=== PATIENT | male | born 1990 | race Two or more races ===

== ENCOUNTER 2017-06-08 14:55 | Emergency (ER) | payer SELFPAY ==
--- NOTE | 2017-06-08 16:53 | UC ---
Skin Complaint HPI - HPI Summary HPI Summary: 27 y/o male presents to the urgent care c/o redness with swelling below his RT knee s/p bug bite 4 days ago. Pt states his pain is 6/10 specially when he walks. Pt has been taking Ibuprofen 400mg OTC which has helped with the pain. Pt denies fever. SOB, chest pain, N/V/D, abdominal pain. - History of Current Complaint Chief Complaint: UCLowerExtremity Time Seen by Provider: 06/08/17 16:31 Stated Complaint: POSS BUG BITE,INFLAMED Hx Obtained From: Patient Onset/Duration: Gradual Onset, Lasting Days - 4 DAYS, Still Present Skin Exposure Onset/Duration: Days Ago Timing: Constant Onset Severity: Mild Current Severity: Moderate Pain Intensity: 6 Pain Scale Used: 0-10 Numeric Location: Discrete - Below the Rt knee Character: Swelling, Pain, Redness, Painful Aggravating: Touch Alleviating: OTC Meds Associated Signs & Symptoms: Positive: Negative, Tenderness. Negative: Fever, Hoarseness, Rash, Red Streaks - Allergy/Home Medications Allergies/Adverse Reactions: Allergies Allergy/AdvReac Type Severity Reaction Status Date / Time No Known Allergies Allergy Verified 06/08/17 15:46 Review of Systems Constitutional: Negative Skin: Rash - RT lower leg just below the RT knee with red rash s/p bug bite Eyes: Negative ENT: Negative Respiratory: Negative Cardiovascular: Negative Gastrointestinal: Negative Genitourinary: Negative Motor: Negative Neurovascular: Negative Musculoskeletal: Negative Neurological: Negative Psychological: Negative All Other Systems Reviewed And Are Negative: Yes PMH/Surg Hx/FS Hx/Imm Hx Previously Healthy: Yes - Surgical History Surgical History: Yes Surgery Procedure, Year, and Place: SURGERY AT AGE 1 - Family History Known Family History: Positive: Hypertension - Social History Occupation: Employed Full-time Lives: With Family Alcohol Use: Occasionally Substance Use Type: None Smoking Status (MU): Never Smoked Tobacco Physical Exam Triage Information Reviewed: Yes Appearance: Well-Appearing, No Pain Distress, Well-Nourished Vital Signs: Initial Vital Signs Temp 98.2 F 06/08/17 15:36 Pulse 102 06/08/17 15:36 Resp 16 06/08/17 15:36 BP 152/104 06/08/17 15:36 Pulse Ox 99 06/08/17 15:36 Vital Signs Reviewed: Yes Eye Exam: Normal Eyes: Positive: Conjunctiva Clear - PERRLA, EOMI ENT Exam: Normal ENT: Positive: Normal ENT inspection, Hearing grossly normal, Pharynx normal, TMs normal Dental Exam: Normal Neck exam: Normal Neck: Positive: Supple, Nontender, No Lymphadenopathy Respiratory Exam: Normal Respiratory: Positive: Chest non-tender, Lungs clear, Normal breath sounds Cardiovascular Exam: Normal Cardiovascular: Positive: RRR, No Murmur, Pulses Normal Abdominal Exam: Normal Abdomen Description: Positive: Nontender, No Organomegaly, Soft. Negative: CVA Tenderness (R), CVA Tenderness (L) Bowel Sounds: Positive: Present Musculoskeletal Exam: Normal Musculoskeletal: Positive: Strength Intact, ROM Intact, No Edema, Other: - RT knee with FROM, non tender positive pulses Neurological Exam: Normal Psychological Exam: Normal Skin: Positive: rashes - RT lower leg just below the Rt knee with erythematous patch with indistict borders about 4cm X 4cmin size. swollen, raised w/ central postule s/p insect bite. Course/Dx - Course Course Of Treatment: 27 y/o male presents to the urgent care c/o redness with swelling below his RT knee s/p bug bite 4 days ago. Pt states his pain is 6/10 specially when he walks. Pt has been taking Ibuprofen 400mg OTC which has helped with the pain. Pt denies fever. SOB, chest pain, N/V/D, abdominal pain. Hx obtained. Cellulitis of lateral side of LF lower leg below the LF knee. Cellulitis demarkated with skin marker. Pt Rx Bactrim PO and Bacitracin and Ibuprofen PO to alleviate symptoms. Advised if redness doubles in size after 48hrs despite taking antibiotics and fevr develops to go immediately to the ER. Otherwise return to urgent care or F/u with PCP for check up in 2 days. Pt BP elevated today. FMHX of HTN. Advised to monitor BP, decrease salt in diet and if continues to be elevated to f/u with PCP for further management. Pt understood and agreed. - Differential Diagnoses - Skin Complaint Differential Diagnoses: Abscess, Cellulitis, Lymphadenitis, MRSA, Tick Born Illness, Urticaria, Other - insect bite - Diagnoses Provider Diagnoses: 1- Rt lower leg with cellulitis. 2- Elevated blod pressure w/o HX of HTN Discharge - Discharge Plan Condition: Stable Disposition: HOME Prescriptions: Bacitracin OINTMENT* 1 applic TOPICAL TID #1 tube Ibuprofen TAB* [Motrin TAB* 800 MG] 800 mg PO Q6H #20 tab Sulfamethox/Trimethoprim DS* [Bactrim DS 800/160 TAB*] 1 tab PO BID #20 tab Patient Education Materials: Cellulitis (ED), Low Sodium Diet (ED) Print Language: JAPANESE Forms: *Work Release Referrals: No Primary Care Phys,NOPCP [Primary Care Provider] - [facility] [Outside] - 3 Days Additional Instructions: 1-Por favor tome todo benavidez antibiotico completamente para evitar resistencia. 2-Si desarrolla inflamacion, fiebre y la piel blayne se esparce mas dolly del area demarcada despues de 48 hr del antibiotico, por Favor vaya a la Emergencia lo mas pronto possible por tratamiento de antibiotico por vena. 3-Evite estar mucho tiempo de pie, o flexionar benavidez rodilla, matenga la elevada en la noche. Por favor gavino a benavidez Medico Prim[facility] en 2 jeffery para mallory que la cellulitis se kathleen resolviendo.. 4- Benavidez Pression arterial esta elevada hoy. Por favor disminulla la mark en la comida y stephanie ejercicio, monitore benavidez Presion arterial. Si continua mary por favor gavino a gretchen [facility] para mejor tratamiento.
[2017-06-08 17:11] VITALS: BP 140/98
== END 2017-06-08 17:30 | disposition home or self-care (01) ==
LOC: UCEAST 14:55
DX: L03.115 Cellulitis of right lower limb (principal); R03.0 Elevated blood-pressure reading, without diagnosis of hypertension
CPT/HCPCS: 99202; G0463

== ENCOUNTER 2017-11-13 14:42 | Emergency (ER) | payer SELFPAY ==
[2017-11-13 15:55] VITALS: BP 151/95
--- NOTE | 2017-11-13 16:13 | UC ---
Lower Extremity/Ankle HPI - HPI Summary HPI Summary: Pt presents with left ankle pain sustained 4 days ago. The pt does not speak or understand much south african - his friend, Federico, with him today is translating. He tells me that 4 days ago he developed this pain after tripping and twisting his ankle. Pain is on the anterior aspect of the left ankle. He has not taken anything for this pain and has still been working and ambulating. Denies numbness, tingling, or history of injury. - History of Current Complaint Chief Complaint: UCLowerExtremity Stated Complaint: ANKLE INJURY Time Seen by Provider: 11/13/17 16:10 Hx Obtained From: Patient Onset/Duration: Sudden Onset Severity Initially: Severe Severity Currently: Severe Pain Intensity: 8 Pain Scale Used: 0-10 Numeric Aggravating Factor(s): Standing, Ambulation Alleviating Factor(s): Rest, Elevation Able to Bear Weight: Yes - Allergies/Home Medications Allergies/Adverse Reactions: Allergies Allergy/AdvReac Type Severity Reaction Status Date / Time No Known Allergies Allergy Verified 06/08/17 15:46 Home Medications: Home Medications Ibuprofen TAB* [Motrin TAB* 800 MG] 600 mg PO Q6H 11/13/17 [History Confirmed ] PMH/Surg Hx/FS Hx/Imm Hx Previously Healthy: Yes - Surgical History Surgical History: Yes Surgery Procedure, Year, and Place: SURGERY AT AGE 1 - Family History Known Family History: Positive: Hypertension - Social History Occupation: Employed Full-time Lives: With Family Alcohol Use: Occasionally Substance Use Type: None Smoking Status (MU): Never Smoked Tobacco Review of Systems Constitutional: Negative Skin: Negative Respiratory: Negative Cardiovascular: Negative Gastrointestinal: Negative Neurovascular: Negative Musculoskeletal: Decreased ROM - Left ankle, Other: - Left ankle pain Neurological: Negative Psychological: Negative All Other Systems Reviewed And Are Negative: Yes Physical Exam Triage Information Reviewed: Yes Appearance: Well-Appearing, No Pain Distress, Well-Nourished Vital Signs: Initial Vital Signs Temp 98.2 F 11/13/17 15:48 Pulse 89 11/13/17 15:48 Resp 16 11/13/17 15:48 BP 151/95 11/13/17 15:48 Pulse Ox 98 11/13/17 15:48 Vital Signs Reviewed: Yes Respiratory: Positive: Lungs clear, Normal breath sounds, No respiratory distress Cardiovascular: Positive: RRR, No Murmur, Pulses Normal - Left DP and TP, Brisk Capillary Refill - Left foot and all toes Musculoskeletal: Positive: No Edema, Strength Limited @ - Left ankle plantar flexion due to pain in anterior aspect of ankle, ROM Limited @ - Left ankle during plantar flexion due to pain in anterior ankle, Other: - TTP overlying the anterior aspect of the left ankle. No obvious bony deformity. Neurological: Positive: Alert, Other: - Sensations intact left foot and all toes Psychological: Positive: Age Appropriate Behavior Skin: Positive: Other - No erythema, ecchymosis, or skin breaking of left ankle/ foot. Lower Extremity Course/Dx - Course Course Of Treatment: Ankle XR: IMPRESSION: NO ACUTE OSSEOUS INJURY. IF SYMPTOMS PERSIST, RECOMMEND REPEAT IMAGING. Suspect left ankle sprain. I have provided him with an OZ wrap and gel splint and strongly advised RICE therapy with a 2 days off work for rest. - Differential Dx/Diagnosis Provider Diagnoses: Left ankle sprain Discharge - Discharge Plan Condition: Stable Disposition: HOME Prescriptions: Meloxicam [Mobic] 7.5 mg PO BID PRN #20 tab PRN Reason: Pain Patient Education Materials: Ankle Sprain (DC) Print Language: KISWAHILI Forms: *Work Release Referrals: No Primary Care Phys,NOPCP [Primary Care Provider] - Additional Instructions: If you develop a fever, shortness of breath, chest pain, new or worsening symptoms - please call your PCP or go to the ED. Your blood pressure was high at todays visit. Please see your primary provider within 4 weeks for recheck and re-evaluation. 1) If your symptoms worsen or persist longer than 7-10 days, please call Orthopedics at the number below to schedule a follow up appointment. 2) Do not take ibuprofen in addition to the new medication (Meloxicam)
--- NOTE | 2017-11-13 16:29 | RAD ---
HISTORY: Left ankle pain and swelling COMPARISONS: None VIEWS: 3, Frontal, lateral, and oblique views of the left ankle FINDINGS: BONE DENSITY: Normal. BONES: There is no displaced fracture. There is a plantar calcaneal enthesophyte JOINTS: There is no arthropathy. ALIGNMENT: There is no dislocation. SOFT TISSUES: Unremarkable. OTHER FINDINGS: None. IMPRESSION: NO ACUTE OSSEOUS INJURY. IF SYMPTOMS PERSIST, RECOMMEND REPEAT IMAGING.
== END 2017-11-13 17:21 | disposition home or self-care (01) ==
LOC: UCEAST 14:42
DX: S93.402A Sprain of unspecified ligament of left ankle, initial encounter (principal); W18.40XA Slipping, tripping and stumbling without falling, unspecified, initial encounter; Y92.9 Unspecified place or not applicable
CPT/HCPCS: 99213; G0463

== ENCOUNTER 2017-11-18 11:17 | Emergency (ER) | payer SELFPAY ==
[2017-11-18 14:48] VITALS: BP 136/97
[2017-11-18] MEDS ORDERED: Ketorolac INJ* 60 MG/2 ML VIAL IM ONE (15:29)
--- NOTE | 2017-11-18 15:34 | RAD ---
INDICATION: Left leg pain COMPARISON: Left ankle November 13, 2017 TECHNIQUE: AP and lateral views were obtained. FINDINGS: There is no acute fracture or dislocation. There is no significant soft tissue swelling. IMPRESSION: NO ACUTE FRACTURE.
--- NOTE | 2017-11-19 21:50 | UC ---
Lissa Mendiola Gabriel, scribed for Jose Holguin MD on 11/18/17 at 1456 . Lower Extremity/Ankle HPI - HPI Summary HPI Summary: This patient is a 27 year old M [place] [facility] his employer s/p fall that occurred 11/01/2017. The patient rates the pain 6/10 in severity. Symptoms aggravated by walking. Symptoms are slightly alleviated by ibuprofen. 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 The patient was seen at on 11/13/17 and they did not see any fracture but his pain has increased since then. - History of Current Complaint Chief Complaint: UCLowerExtremity Stated Complaint: LEG INJURY Hx Obtained From: Patient Onset/Duration: Lasting Weeks - 2, Still Present Severity Initially: Moderate Severity Currently: Moderate Pain Intensity: 6 Pain Scale Used: 0-10 Numeric Aggravating Factor(s): Ambulation Alleviating Factor(s): OTC Meds Able to Bear Weight: Yes Related History: Occupational Injury - Allergies/Home Medications Allergies/Adverse Reactions: Allergies Allergy/AdvReac Type Severity Reaction Status Date / Time No Known Allergies Allergy Verified 11/18/17 14:39 PMH/Surg Hx/FS Hx/Imm Hx Other History Of: Negative For: HIV, Hepatitis B, Hepatitis C - Surgical History Surgical History: Yes Surgery Procedure, Year, and Place: SURGERY AT AGE 1 - Family History Known Family History: Positive: Hypertension Negative: Renal Disease, Respiratory Disease, Seizure Disorder - Social History Occupation: Employed Full-time Alcohol Use: Occasionally Substance Use Type: None Smoking Status (MU): Never Smoked Tobacco - Immunization History Most Recent Tetanus Shot: unknown Review of Systems Constitutional: Negative - fever Musculoskeletal: Other: - left bradley pain All Other Systems Reviewed And Are Negative: Yes Physical Exam Triage Information Reviewed: Yes Vital Signs: Initial Vital Signs Temp 98.4 F 11/18/17 14:42 Pulse 77 11/18/17 14:42 Resp 16 11/18/17 14:42 BP 136/97 11/18/17 14:42 Pulse Ox 100 11/18/17 14:42 Vital Signs Reviewed: Yes - Additional Comments Vital signs: reviewed General: Patient is comfortable lying in stretcher with no signs of distress HEENT: within normal limits Lungs: CTA B/L CVS: S1 & S2 present. No murmurs appreciated. ABDOMEN: Soft, non-tender. No signs of distention. No rebound no guarding, and no masses palpated. Bowel sounds are normal. EXTREMITIES: FROM in all major joints, no edema, no cyanosis or clubbing. Pin point tenderness in the anterior aspect of the left Lower extremity in the area just above the ankle NEURO: Alert and oriented x 3. No acute neurological deficits. Speech is normal and follows commands. SKIN: Dry and warm Diagnostics - Radiology Lower Extremity Xray Radiology Interpretation Completed By: Radiologist - NO ACUTE FRACTURE. ED physician has reviewed this radiology report and agrees. Lower Extremity Course/Dx - Course Course Of Treatment: This patient is a 27 year old M [place] [facility] [place] by his employer s/p fall that occurred 11/01/2017. The patient rates the pain 6/10 in severity. Symptoms aggravated by walking. Symptoms are slightly alleviated by ibuprofen. 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 The patient was seen at on and they did not see any fracture but his pain has increased since then. Lower Extremity XR reveals, per radiologist, NO ACUTE FRACTURE. I discussed all the findings and test results with the patient. Pt was instructed to return to the urgent care or go to ER immediately if any of the symptoms return or worsens. Plan of care was discussed with the patient and pt understands and agrees. All questions were answered to patient satisfaction. There were no further complaints or concerns. Patient will be discharged with prescription for Motrin. - Differential Dx/Diagnosis Differential Diagnosis/HQI/PQRI: Bursitis, Contusion, Fracture (Closed), Sprain , Strain Provider Diagnoses: Leg Pain Discharge - Discharge Plan Condition: Stable Disposition: HOME Prescriptions: Ibuprofen TAB* [Motrin TAB* 800 MG] 600 mg PO Q6H PRN #30 tab PRN Reason: Pain Patient Education Materials: Leg Pain (ED) Print Language: WELSH Referrals: No Primary Care Phys,NOPCP [Primary Care Provider] - Additional Instructions: Elevate extremity as much as possible take medications as indicated The documentation as recorded by the Lissa hernández Gabriel accurately reflects the service I personally performed and the decisions made by , Jose Holguin MD.
== END 2017-11-18 16:10 | disposition home or self-care (01) ==
LOC: UCEAST 11:17
DX: M79.662 Pain in left lower leg (principal)
CPT/HCPCS: 96372; 99212; G0463; J1885

== ENCOUNTER 2018-02-17 09:21 | Emergency (ER) | payer SELFPAY ==
[2018-02-17 10:08] VITALS: BP 150/95
[2018-02-17] MEDS ORDERED: Ibuprofen TAB* 600 MG PO ONE (10:57)
[2018-02-17] MEDS ORDERED: Acetaminophen TAB* 325 MG PO ONE (10:57)
--- NOTE | 2018-02-17 11:08 | UC ---
UC General HPI - HPI Summary HPI Summary: C/O PROGRESSIVE BILAT HAND PAIN AND SWELLING, BILAT SHOULDER AND ARM PAIN, LEFT LEG PAIN X 4 MONTHS. NO PRIOR HX OF SAME. PAIN IS CONSTANT, WORSE AFTER WORK, AND AFTER EATING MEAT. DENIES TRAUMA, RASH, QUINN, FEVER, COUGH, SORE THROAT, CP, SOB, N/V/D, ABDO PAIN, CHANGE IN URINE OR BM. MED HX = NONE. - History of Current Complaint Hx Obtained From: Patient Onset/Duration: Gradual Onset Timing: Constant Onset Severity: Mild Current Severity: Severe Pain Intensity: 10 <Barrie Garcia - Last Filed: 02/17/18 21:29> <Guillermina Pantoja - Last Filed: 02/18/18 05:16> - History of Current Complaint Chief Complaint: UCGeneralIllness Stated Complaint: PAIN IN ENTIRE BODY Time Seen by Provider: 02/17/18 10:16 - Allergy/Home Medications Allergies/Adverse Reactions: Allergies Allergy/AdvReac Type Severity Reaction Status Date / Time No Known Allergies Allergy Verified 02/17/18 09:41 PMH/Surg Hx/FS Hx/Imm Hx Other History Of: Negative For: HIV, Hepatitis B, Hepatitis C - Surgical History Surgical History: Yes Surgery Procedure, Year, and Place: hernia SURGERY AT AGE 1 - Family History Known Family History: Positive: Hypertension Negative: Renal Disease, Respiratory Disease, Seizure Disorder - Social History Alcohol Use: Occasionally Substance Use Type: None Smoking Status (MU): Never Smoked Tobacco - Immunization History Most Recent Tetanus Shot: unknown <Barrie Garcia - Last Filed: 02/17/18 21:29> Review of Systems Constitutional: Negative Skin: Negative Eyes: Negative ENT: Negative Respiratory: Negative Cardiovascular: Negative Gastrointestinal: Negative Genitourinary: Negative Motor: Negative Neurovascular: Negative Musculoskeletal: Arthralgia Neurological: Negative Psychological: Negative Is Patient Immunocompromised?: No All Other Systems Reviewed And Are Negative: Yes <Barrie Garcia - Last Filed: 02/17/18 21:29> Physical Exam - Summary Physical Exam Summary: MILD SWELLING TO BILAT HANDS. NO SWELLING OF BILAT WRISTS, ELBOWS, SHOULDERS, LEFT LEG , LEFT KNEE. NO ERYTHEMA, EXTRA WARMTH, ECCHYMOSIS, DEFORMITY TO BILAT HANDS, ARMS, SHOULDERS, AND LEFT LEG NOTED. FULL ROM OF LEFT KNEE, BILAT SHOULDERS, ELBOWS, WRISTS, FINGERS Triage Information Reviewed: Yes Appearance: Well-Appearing Vital Signs: Initial Vital Signs Temp 98.6 F 02/17/18 09:44 Pulse 79 02/17/18 09:44 Resp 16 02/17/18 09:44 BP 150/95 02/17/18 09:44 Pulse Ox 97 02/17/18 09:44 Vital Signs Reviewed: Yes Eye Exam: Normal ENT Exam: Normal Neck exam: Normal Respiratory Exam: Normal Cardiovascular Exam: Normal Abdominal Exam: Normal Musculoskeletal Exam: Normal Neurological Exam: Normal Psychological Exam: Normal Skin Exam: Normal <Barrie Garcia - Last Filed: 02/17/18 21:29> Vital Signs: Initial Vital Signs Temp 98.6 F 02/17/18 09:44 Pulse 79 02/17/18 09:44 Resp 16 02/17/18 09:44 BP 150/95 02/17/18 09:44 Pulse Ox 97 02/17/18 09:44 <Guillermina Pantoja - Last Filed: 02/18/18 05:16> Course/Dx - Course Course Of Treatment: URIC, LYME, CBC, CMP, SED RATE DRAWN. WILL PLACE ON COURSE OF DOXYCYCLINE FOR 14 DAYS PER URGENT RX. LabS seen and unremarkable: 21:30 - Differential Dx - Multi-Symptom Provider Diagnoses: POLYARTHRALGIA <Barrie Garcia - Last Filed: 02/17/18 21:29> Discharge - Sign-Out/Discharge Documenting (check all that apply): Discharge/Admit/Transfer - Billing Disposition and Condition Condition: STABLE Disposition: HOME <Barrie Garcia - Last Filed: 02/17/18 21:29> - Billing Disposition and Condition Condition: STABLE Disposition: HOME <Guillermina Pantoja - Last Filed: 02/18/18 05:16> - Discharge Plan Condition: Stable Disposition: HOME Prescriptions: DOXYcycline CAP(*) [DOXYcycline 100MG CAP(*)] 100 mg PO BID 14 Days #28 cap Ibuprofen TAB* [Motrin TAB* 600 MG] 600 mg PO Q8H PRN 7 Days #21 tab PRN Reason: Pain Patient Education Materials: Lyme Disease (ED), Tick Bite (ED), Low Purine Diet (ED), Gout (ED), Rheumatoid Arthritis (ED), Arthralgia (ED) Print Language: DOMINICAN Referrals: No Primary Care Phys,NOPCP [Primary Care Provider] - Tish VILLALOBOS,Barry Josue [Medical Doctor] - Additional Instructions: FOLLOW UP WITH DR CATHERINE FOR FURTHER EVALUATION Attestation Statement User Type: Provider - I was available for consult. This patient was seen by the CARMINE. The patient was not presented to, seen by, or examined by me. -Osmany <Guillermina Pantoja - Last Filed: 02/18/18 05:16>
[2018-02-17 16:15] LABS: ABS Basophils 0.1 10^3/ul (0-0.2); ABS Eosinophils 0.1 10^3/ul (0-0.6); ABS Lymphocytes 2.2 10^3/ul (1.0-4.8); ABS Monocytes 0.5 10^3/ul (0-0.8); ABS Neutrophils 4.9 10^3/ul (1.5-7.7); ABS Nucleated RBC 0 10^3/ul; Eosinophil % 1.2 % (0-6); Hematocrit 50 % (42-52); Mean Corpuscular HGB Conc 34 g/dl (31-36); Mean Corpuscular Hemoglobin 30 pg (27-31); Mean Corpuscular Volume 88 fL (80-94); Mean Platelet Volume 8.6 um3 (7.4-10.4); Nucleated Red Blood Cells % 0.1; Platelet Count 250 10^3/ul (150-450); Red Cell Distribution Width 15 % (10.5-15); White Blood Count 7.7 10^3/ul (3.5-10.8)
[2018-02-17 16:22] LABS: EGFR Non-African American 123.1 (>60); Uric Acid 6.4 mg/dL (4.4-7.6)
== END 2018-02-17 11:40 | disposition home or self-care (01) ==
LOC: UCEAST 09:21
DX: M25.542 Pain in joints of left hand (principal); M25.541 Pain in joints of right hand; M25.512 Pain in left shoulder; M25.511 Pain in right shoulder; M79.605 Pain in left leg; M79.89 Other specified soft tissue disorders
CPT/HCPCS: 36415; 80053; 84550; 85025; 85652; 86618; 99212; A9270-GY; G0463